=== PATIENT | female | born 1990 | race Caucasian/White ===

== ENCOUNTER 2018-12-08 20:31 | Observation (INO) ==
[2018-12-08 20:58] LABS: Bilirubin,Urine Small (Negative); Blood,Urine Negative (Negative); Clarity,Urine Clear (Clear); Color,Urine Yellow (Yellow); Glucose,Urine (UA) Normal (Normal); Ketones,Urine Negative (Negative); Leukocyte Esterase,Urine Negative (Negative); Nitrite,Urine Negative (Negative); Protein,Urine Negative (Neg-Trace); Specific Gravity,Urine 1.023 (1.010-1.025)
[2018-12-08 21:06] LABS: Amphetamine Screen,Urine Negative ng/mL (Cutoff=1000); Barbiturate Screen,Urine Negative ng/mL (Cutoff=200); Benzodiazepines Screen,Urine Negative ng/mL (Cutoff=200); Cannabinoid Screen,Urine Negative ng/mL (Cutoff = 50); Cocaine Screen,Urine Negative ng/mL (Cutoff= 300); Opiate Screen,Urine Negative ng/mL (Cutoff=300); Phencyclidine Screen,Urine Negative ng/mL (Cutoff=25)
[2018-12-08] MEDS ORDERED: Acetaminophen 325 MG TABLET PO ONE (22:02)
[2018-12-08] MEDS ORDERED: Acetaminophen/Butalbital/CaffeineTABLET PO PRN (23:11)
== END 2018-12-08 23:20 | disposition home or self-care (01) ==
LOC: 1NENULAB
PROVIDERS: ADMIT Registered Nurse; ATTEND Registered Nurse

== ENCOUNTER 2018-12-09 16:47 | Observation (INO) ==
[2018-12-09] MEDS ORDERED: Acetaminophen/Butalbital/CaffeineTABLET PO PRN (17:12)
[2018-12-09] MEDS ORDERED: Terconazole Vag CRM 20 GM TUBE VG SCH (17:36)
[2018-12-09 19:02] LABS: Bilirubin,Urine Negative (Negative); Blood,Urine Negative (Negative); Clarity,Urine Clear (Clear); Color,Urine Yellow (Yellow); Glucose,Urine (UA) Normal (Normal); Ketones,Urine 15 mg/dL (Negative); Leukocyte Esterase,Urine Negative (Negative); Nitrite,Urine Negative (Negative); PH,Urine 6.5 pH Units (5.0-8.0); Protein,Urine Negative (Neg-Trace); Specific Gravity,Urine 1.022 (1.010-1.025)
[2018-12-09] MEDS ORDERED: Acetaminophen 325 MG TABLET PO ONE (19:06)
[2018-12-09] MEDS ORDERED: Magnesium Oxide 400 MG TABLET PO ONE (19:07)
[2018-12-09 19:12] LABS: Amphetamine Screen,Urine Negative ng/mL (Cutoff=1000); Barbiturate Screen,Urine Positive ng/mL (Cutoff=200); Benzodiazepines Screen,Urine Negative ng/mL (Cutoff=200); Cannabinoid Screen,Urine Negative ng/mL (Cutoff = 50); Cocaine Screen,Urine Negative ng/mL (Cutoff= 300); Opiate Screen,Urine Negative ng/mL (Cutoff=300); Phencyclidine Screen,Urine Negative ng/mL (Cutoff=25)
[2018-12-09 20:55] LABS: Basophils % 0.3 %; Eosinophils # 0.1 K/mcL (0.0-0.6); Eosinophils % 1.1 %; Hematocrit 34.2 % (35.3-44.9); Hemoglobin 12.4 g/dL (11.5-15.4); Immature Granulocytes % 0.5 % (0-4); Lymphocytes # 2.7 K/mcL (0.6-4.6); Lymphocytes % 20.8 %; Mean Corpuscular HGB Conc 36.3 g/dL (31.6-35.5); Mean Corpuscular Hemoglobin 34.6 pg (28.0-33.3); Mean Corpuscular Volume 95.5 fL (83.0-100.0); Mean Platelet Volume 10.1 fL (9.4-12.4); Monocytes # 0.7 K/mcL (0.0-1.3); Monocytes % 5.7 %; Neutrophils # 9.2 K/mcL (1.6-8.9); Platelet Count 172 K/mcL (140-400); Red Blood Count 3.58 M/mcL (3.82-4.97); Red Cell Distribution Width 12.5 % (11.5-14.5); Segmented Neutrophils % 71.6 %; White Blood Count 12.9 K/mcL (4.3-11.1)
[2018-12-09 21:02] LABS: Protein/Creatinine Ratio,Urine 0.14 mg/mg (0.00-0.20)
[2018-12-09 21:14] LABS: Alanine Aminotransferase 9 Units/L (7-52); Aspartate Amino Transferase 13 Units/L (13-39); BUN/Creatinine Ratio 18 (6-26); Blood Urea Nitrogen 9 mg/dL (6-20); Lactate Dehydrogenase 123 Units/L (140-271); Uric Acid 3.2 mg/dL (2.3-7.6); eGFR For African Americans > 60 (> 60); eGFR For Non-African Americans > 60 (> 60)
== END 2018-12-09 20:39 | disposition home or self-care (01) ==
LOC: 1NENULAB
PROVIDERS: ADMIT Advanced Practice Midwife; ATTEND Advanced Practice Midwife

== ENCOUNTER 2018-12-15 15:18 | Observation (INO) ==
[2018-12-15 15:42] VITALS: BP 107/54
[2018-12-15] MEDS ORDERED: Betamethasone Acet/SodPhos 30 MG/5 ML VIAL IM SCH (15:45)
[2018-12-15 15:57] LABS: Bilirubin,Urine Negative (Negative); Blood,Urine Small (Negative); Clarity,Urine Cloudy (Clear); Color,Urine Yellow (Yellow); Glucose,Urine (UA) Normal (Normal); Ketones,Urine Trace mg/dL (Negative); Leukocyte Esterase,Urine Negative (Negative); Nitrite,Urine Negative (Negative); Protein,Urine Negative (Neg-Trace); Specific Gravity,Urine 1.017 (1.010-1.025)
[2018-12-15 16:02] LABS: Bacteria,Urine None Seen per hpf (None-Few); Hyaline Casts,Urine None Seen per lpf (None-Few); RBC,Urine 0-3 per hpf (0-3); Squamous Epithelial Cell,Urine Many per lpf (None-Few); WBC,Urine 0-3 per hpf (0-3)
[2018-12-15 16:42] LABS: Amphetamine Screen,Urine Negative ng/mL (Cutoff=1000); Barbiturate Screen,Urine Positive ng/mL (Cutoff=200)
[2018-12-15 16:43] LABS: Benzodiazepines Screen,Urine Negative ng/mL (Cutoff=300); Cannabinoid Screen,Urine Positive ng/mL (Cutoff = 50); Cocaine Screen,Urine Negative ng/mL (Cutoff= 300); Opiate Screen,Urine Negative ng/mL (Cutoff=300); Phencyclidine Screen,Urine Negative ng/mL (Cutoff=25)
[2018-12-15] MEDS ORDERED: Ampicillin 2 GM in 0.9 % Sodium Chloride Mini Bag 100 ML IVPB ONE (17:21)
[2018-12-15] MEDS ORDERED: Ringers Solution, Lactated 1,000 ML IVC ONE (17:28)
[2018-12-15 17:51] LABS: Basophils % 0.2 %; Eosinophils # 0.1 K/mcL (0.0-0.6); Eosinophils % 0.9 %; Hematocrit 34.7 % (35.3-44.9); Hemoglobin 12.2 g/dL (11.5-15.4); Immature Granulocytes % 0.6 % (0-4); Lymphocytes # 1.6 K/mcL (0.6-4.6); Lymphocytes % 12.4 %; Mean Corpuscular HGB Conc 35.2 g/dL (31.6-35.5); Mean Corpuscular Hemoglobin 33.8 pg (28.0-33.3); Mean Corpuscular Volume 96.1 fL (83.0-100.0); Mean Platelet Volume 10.1 fL (9.4-12.4); Monocytes # 0.5 K/mcL (0.0-1.3); Monocytes % 3.8 %; Neutrophils # 10.4 K/mcL (1.6-8.9); Platelet Count 168 K/mcL (140-400); Red Blood Count 3.61 M/mcL (3.82-4.97); Red Cell Distribution Width 12.7 % (11.5-14.5); Segmented Neutrophils % 82.1 %; White Blood Count 12.7 K/mcL (4.3-11.1)
[2018-12-15] MEDS ORDERED: NIFEdipine 10 MG CAPSULE PO SCH (18:00)
== END 2018-12-15 19:10 | disposition other institution (70) ==
LOC: 1NENULAB
PROVIDERS: ADMIT Advanced Practice Midwife; ATTEND Advanced Practice Midwife

== ENCOUNTER → 2018-12-22 16:30 | Observation (INO) ==
--- NOTE | 2018-12-22 17:09 | OB/GYN Progress Note ---
Date of Encounter: 12/22/18 Time of Encounter: 17:07 - Assessment and Plan (1) 32 weeks gestation of Status: Acute (2) uterine contractions Status: Acute Cervix remains the same from discharge from [facility]. No change on serial cervical exams. Patient states she has stopped feeling contractions while in triage, and requests discharge home. Patient discharged home with labor when to return to triage precautions. Patient verbalizes understanding. Subjective - Subjective Interval history: 32+0 weeks gestation presents to triage with complaints of contractions. Was seen last week with contractions, transfer to [facility]. Discharged home 2-3 cm[address] Was seen [address] Dr[address] Cortes in office today. Patient reported having contractions off and on since last night. Here for evaluation. Reports good movement, denies vaginal bleeding or leaking of fluid. Antepartum ROS: movement normal, contractions, no loss of fluid, no vaginal bleeding Objective - Vital Signs Vital Signs: Intake and Output 12/22/18 12/22/18 12/22/18 07:59 15:59 23:59 Other: Weight 55.2 kg Patient Weight 12/22/18 23:59 Weight 55.2 kg - Exam FHR: auscultation normal
== END | disposition home or self-care (01) ==
LOC: 1NENULAB
PROVIDERS: ADMIT Advanced Practice Midwife; ATTEND Advanced Practice Midwife

== ENCOUNTER → 2019-01-05 01:05 | Observation (INO) ==
[2019-01-04 22:54] LABS: Bilirubin,Urine Small (Negative); Blood,Urine Negative (Negative); Clarity,Urine Clear (Clear); Color,Urine Dark Yellow (Yellow); Glucose,Urine (UA) Normal (Normal); Ketones,Urine Negative (Negative); Leukocyte Esterase,Urine Negative (Negative); Nitrite,Urine Negative (Negative); Protein,Urine Negative (Neg-Trace); Specific Gravity,Urine 1.024 (1.010-1.025); Urobilinogen,Urine Normal (Normal)
[2019-01-04 23:05] LABS: Amphetamine Screen,Urine Negative ng/mL (Cutoff=1000); Barbiturate Screen,Urine Negative ng/mL (Cutoff=200); Benzodiazepines Screen,Urine Negative ng/mL (Cutoff=200); Cannabinoid Screen,Urine Positive ng/mL (Cutoff = 50); Cocaine Screen,Urine Negative ng/mL (Cutoff= 300); Opiate Screen,Urine Negative ng/mL (Cutoff=300); Phencyclidine Screen,Urine Negative ng/mL (Cutoff=25)
--- NOTE | 2019-01-04 23:27 | Discharge Summary ---
Date of Encounter: 01/05/19 Time of Encounter: 23:26 - Discharge Diagnosis (1) 34 weeks gestation of Priority: Primary Status: Acute Comments: Admit to observation for questionable SROM (2) NST (non-stress test) reactive Priority: Secondary Status: Acute Comments: Category 1 Tracing. FHR 135 bpm, moderate variability, +15x15 accels, no decels. (3) uterine contractions Priority: Secondary Status: Acute Comments: Rare uterine contractions. SVE unchanged from previous exam - Given steroid course at 30 weeks gestation when she was transferred to [facility] for PTL (4) Marijuana use Priority: Secondary Status: Acute Comments: Multiple positive THC screens throughout this . She has had a consult with psychotherapist social worker in the office - Discharge Medications Prescriptions: No Action Vortioxetine Hydrobromide [Trintellix] 10 mg PO DAILY ARIPiprazole [Abilify] 10 mg PO DAILY Caplet Home Medications: ARIPiprazole [Abilify] 10 mg PO DAILY 11/04/18 [History] Vortioxetine Hydrobromide [Trintellix] 10 mg PO DAILY 11/04/18 [History] Caplet 01/04/19 [History] Allergies/Adverse Reactions: Allergy/AdvReac Type Severity Reaction Status Date / Time azithromycin Allergy Abdominal Verified 01/04/19 22:39 Pain promethazine [From Phenergan] Allergy Hallucinati Verified 01/04/19 22:39 ng metoclopramide [From Reglan] AdvReac See Verified 01/04/19 22:39 Comments prochlorperazine AdvReac Confusion Verified 01/04/19 22:39 [From Compazine] Data Procedures and tests throughout hospitalization: Laboratory Tests 01/04/19 01/04/19 22:30 22:30 Urine Color Dark Yellow Urine Clarity Clear Urine pH 6.0 Ur Specific [place] 1.024 Urine Protein Negative Urine Glucose (UA) Normal Urine Ketones Negative Urine Blood Negative Urine Nitrite Negative Urine Bilirubin Small H Urine Urobilinogen Normal Ur Leukocyte Esterase Negative Ur Culture Indicated? NO Urine Opiates Screen Negative Ur Buprenorphine Scrn Negative Ur Barbiturates Screen Negative Ur Phencyclidine Scrn Negative Ur Amphetamines Screen Negative U Benzodiazepines Scrn Negative Urine Cocaine Screen Negative U Marijuana (THC) Screen Positive H Ur Drug Screen Interp See Below Labs on day of discharge: Labs from last 24 hours 01/04/19 01/04/19 22:30 22:30 Urine Color Dark Yellow Urine Clarity Clear Urine pH 6.0 Ur Specific [place] 1.024 Urine Protein Negative Urine Glucose (UA) Normal Urine Ketones Negative Urine Blood Negative Urine Nitrite Negative Urine Bilirubin Small H Urine Urobilinogen Normal Ur Leukocyte Esterase Negative Ur Culture Indicated? NO Urine Opiates Screen Negative Ur Buprenorphine Scrn Negative Ur Barbiturates Screen Negative Ur Phencyclidine Scrn Negative Ur Amphetamines Screen Negative U Benzodiazepines Scrn Negative Urine Cocaine Screen Negative U Marijuana (THC) Screen Positive H Ur Drug Screen Interp See Below Date of admission: 01/04/19 22:14 Discharging clinician: Rain Vance Anticipated date of discharge: 01/04/19 - Patient Status Disposition: Home, Self-Care Condition: Good Functional capacity at discharge: independent ambulation Overall status at discharge: patient is progressing back to baseline - Discharge Instructions Follow Up With: Bernardo Ni DO [Partnered Physician] - - Diet and Activity Activity: resume usual activities as tolerated Diet: regular diet Hospital Course FINISHING TECHNICIAN Hospital course: Patient arrived for complaint of possible SROM. States she was going to the bathroom frequently and felt like she couldn't make it there before she started having leakage. She reports positive movement and denies vaginal bleeding. She was transferred to [facility] at 30 weeks gestation for labor at which time she was 2 cm. Last check by Dr. Cortes was 3cm on 12/22/18. SVE prior to discharge today is 3/70/-2. Vaginosis panel was collected and returned negative. SSE completed and no fluid visualized, normal white vaginal discharge noted. Time Attestation: Total time spent providing and/or coordinating discharge services: Time Spent: Less than 30 minutes Exam - Constitutional General appearance IM: A&O X 3, no acute distress - Respiratory Respiratory exam: Present: CTAB. Absent: respiratory distress - Cardiovascular Cardiovascular exam IM: Present: RRR, +S1, +S2. Absent: irregular rhythm - GI/Abdominal GI/Abdominal exam IM: normal bowel sounds, soft - Rectal Rectal exam: deferred - External exam: normal external exam - Extremities Exam Extremities exam IM: Present: full ROM, normal capillary refill, normal inspection. Absent: calf tenderness - Neurological Exam Neurological exam: alert, normal gait, oriented X3 - VTE Reasons for not Prescribing Prophylaxis: Treatment not Indicated - Low risk for VTE
[2019-01-05 00:17] LABS: Candida DNA Not Detected (Not Detect); Gardnerella DNA Not Detected (Not Detect); Trichomonas DNA Not Detected (Not Detect)
== END | disposition home or self-care (01) ==
LOC: 1NENULAB
PROVIDERS: ADMIT Registered Nurse; ATTEND Registered Nurse

== ENCOUNTER 2019-01-10 19:44 | Inpatient (IN) ==
[2019-01-10] MEDS ORDERED: Acetaminophen/Butalbital/CaffeineTABLET PO PRN (19:58)
[2019-01-10] MEDS ORDERED: Ringers Solution, Lactated 1,000 ML IVC SCH (20:00)
[2019-01-10 20:34] LABS: Bilirubin,Urine Negative (Negative); Blood,Urine Negative (Negative); Clarity,Urine Clear (Clear); Color,Urine Yellow (Yellow); Glucose,Urine (UA) Normal (Normal); Ketones,Urine Trace mg/dL (Negative); Leukocyte Esterase,Urine Negative (Negative); Nitrite,Urine Negative (Negative); PH,Urine 6.5 pH Units (5.0-8.0); Protein,Urine Trace mg/dL (Neg-Trace)
[2019-01-10 20:39] LABS: Amphetamine Screen,Urine Negative ng/mL (Cutoff=1000); Barbiturate Screen,Urine Negative ng/mL (Cutoff=200); Benzodiazepines Screen,Urine Negative ng/mL (Cutoff=200); Cannabinoid Screen,Urine Negative ng/mL (Cutoff = 50); Cocaine Screen,Urine Negative ng/mL (Cutoff= 300); Opiate Screen,Urine Negative ng/mL (Cutoff=300); Phencyclidine Screen,Urine Negative ng/mL (Cutoff=25)
--- NOTE | 2019-01-10 20:39 | Discharge Summary ---
Date of Encounter: 01/10/19 - Discharge Diagnosis (1) 34 weeks gestation of Priority: Primary Status: Acute Comments: Follow up with Dr. Cortes as scheduled PTL parameters discussed Discharge home (2) Headache Priority: Secondary Status: Acute Comments: Fioricet given x 1 Qualifiers: Headache type: unspecified Headache chronicity pattern: acute headache Intractability: intractable Qualified Code(s): R51 - Headache (3) Vaginal discharge during in third trimester Priority: Secondary Status: Acute Comments: Vaginosis panel - UA - - Discharge Medications Prescriptions: No Action Vortioxetine Hydrobromide [Trintellix] 10 mg PO DAILY ARIPiprazole [Abilify] 10 mg PO DAILY Caplet PO DAILY Home Medications: ARIPiprazole [Abilify] 10 mg PO DAILY 11/04/18 [History] Vortioxetine Hydrobromide [Trintellix] 10 mg PO DAILY 11/04/18 [History] Caplet PO DAILY 01/04/19 [History] Allergies/Adverse Reactions: Allergy/AdvReac Type Severity Reaction Status Date / Time azithromycin Allergy Abdominal Verified 01/10/19 20:14 Pain promethazine [From Phenergan] Allergy Hallucinati Verified 01/10/19 20:14 ng metoclopramide [From Reglan] AdvReac See Verified 01/10/19 20:14 Comments prochlorperazine AdvReac Confusion Verified 01/10/19 20:14 [From Compazine] Data Procedures and tests throughout hospitalization: Laboratory Tests 01/10/19 20:09 Ur Drug Screen Interp See Below Labs on day of discharge: Labs from last 24 hours 01/10/19 20:09 Ur Drug Screen Interp See Below Date of admission: 01/10/19 19:44 - Patient Status Disposition: Home, Self-Care Condition: Good Functional capacity at discharge: independent ambulation Overall status at discharge: patient is progressing back to baseline - Discharge Instructions Follow Up With: Nicolas Cortes MD [Partnered Physician] - - Diet and Activity Activity: increase activity as tolerated Diet: regular diet Hospital Course PHOTOGRAPHER Reason for admission: other Discharge diagnosis: other Time Attestation: Total time spent providing and/or coordinating discharge services: Time Spent: Less than 30 minutes Exam - Constitutional General appearance IM: A&O X 3, pleasant, answers questions appropriately - Respiratory Respiratory exam: Present: CTAB - Cardiovascular Cardiovascular exam IM: Present: RRR, +S1, +S2 - GI/Abdominal GI/Abdominal exam IM: normal bowel sounds, no peritoneal signs - Rectal Rectal exam: deferred - Uterine Tone: Firm - Extremities Exam Extremities exam IM: Present: full ROM, normal inspection, radial pulses palpable and symmetrical - Neurological Exam Neurological exam: alert, CN II-XII intact, normal gait, oriented X3, reflexes normal, no focal deficits, strengths equal and symetr throughout - VTE Reasons for not Prescribing Prophylaxis: Treatment not Indicated - Low risk for VTE
[2019-01-10 21:15] LABS: Candida DNA Not Detected (Not Detect); Gardnerella DNA Not Detected (Not Detect); Trichomonas DNA Not Detected (Not Detect)
[2019-01-10] MEDS ORDERED: Betamethasone Acet/SodPhos 30 MG/5 ML VIAL IM SCH (21:15)
--- NOTE | 2019-01-10 21:47 | OB/GYN History & Physical ---
Date of Encounter: 01/10/19 Time of Encounter: 21:40 Assessment and Plan (1) 34 weeks gestation of Current visit: No Status: Acute Placement to obs for monitoring s/t prolonged deceleration CEFM IV fluids BMZ x 1 (2) Headache Current visit: No Status: Acute Fioricet given - no relief [id number] with benadryl given Qualifiers: Headache type: unspecified Headache chronicity pattern: acute headache Intractability: intractable Qualified Code(s): R51 - Headache (3) Vaginal discharge during in third trimester Current visit: Yes Status: Acute (4) heart deceleration Current visit: Yes Status: Acute Admit to observation overnight for monitoring r/t 2 minute deceleration CEFM History of Present Illness Chief complaint: ctx/hodgson HPI: Ms. De Santiago is a 28 year old female at 34 weeks 5 days gestation with an estimated date of 02/16/19 dated by initial ultrasound. She presents with complaint of headache for the last few days worsening today as well as contractions starting earlier today. She endorses good fm and denies lof, vb. Her has been complicated by narcolepsy, adult situational stress disorder, labor, migraines. She has been seen by MFM and recs to evaluate for vonWillebrand. Past Med Surg Social Fam HX - Past Medical History Medical history: asthma, other Additional medical history: alpha-1 antitrypsin deficiency Psychiatric history: anxiety, bipolar, depression - Past Surgical History Surgical History: appendectomy, other Additional surgical history: T&A - Social History Smoking Status: Current every day smoker Smokeless Tobacco Status: No Alcohol use: none Drug use: marijuana - Family History Mother Living Status: Still Living Hx Family Cardiac Disorders: Yes (HTN) Hx Family Respiratory Disorders: No Hx Family Cancer: No Hx Family GI Disorders: No Hx Family Endocrine Disorder: No Hx Family Neuromuscular Disorders: No Hx Family Neurologic Disorders: No Hx Family HEENT Disorders: No Hx Family Autoimmune Disorders: No Obstetrical History - Pregnancies : 4 Para: 2 Term: 1 : 1 Ab's: 1 Livin Medications and Allergies ARIPiprazole [Abilify] 10 mg PO DAILY 11/04/18 [History] Vortioxetine Hydrobromide [Trintellix] 10 mg PO DAILY 11/04/18 [History] Caplet PO DAILY 01/04/19 [History] Allergy/AdvReac Type Severity Reaction Status Date / Time azithromycin Allergy Abdominal Verified 01/10/19 20:14 Pain promethazine [From Phenergan] Allergy Hallucinati Verified 01/10/19 20:14 ng metoclopramide [From Reglan] AdvReac See Verified 01/10/19 20:14 Comments prochlorperazine AdvReac Confusion Verified 01/10/19 20:14 [From Compazine] Review of System OB All systems PM: reviewed and no additional remarkable complaints except as stated Exam - Constitutional Constitutional: well developed, well nourished, average body habitus, mild distress - HEENT HEENT: Normocephaly, Mucus Membranes Moist - Neck Neck exam: full ROM - Lungs Respiratory exam: CTAB - Cardiovascular Cardiovascular exam: RRR, +S1, +S2 - Breasts Breast: bilateral: normal - Abdomen Abdomen: Present: bowel sounds normal, gravid, non tender - Extremities Extremities exam: normal capillary refill, normal inspection, radial pulses palpable and symmetrical - Vulva Vulva: bilateral: normal - Vagina Vagina: Present: normal moisture - Cervix Dilation: 3 Effacement: 80 Station: -2 - Uterus Uterus exam: Present: normal size - Adnexa Adnexa: bilateral: normal - Anus/Rectum Anus/Rectum: Present: normal perianal skin Results Abnormal lab results Urine Ketones Trace mg/dL (Negative) H 01/10/19 20:09 Urine Urobilinogen 4.0 mg/dL (Normal) H 01/10/19 20:09 All other labs normal. - VTE Reasons for not Prescribing Prophylaxis: Treatment not Indicated - Low risk for VTE
[2019-01-10] MEDS ORDERED: D5% in Lactated Ringers 1,000 ML IVC SCH (22:45)
[2019-01-11 00:56] LABS: Hematocrit 34.5 % (35.3-44.9); Hemoglobin 11.9 g/dL (11.5-15.4); Immature Granulocytes % 0.5 % (0-4); Lymphocytes % 22.4 %; Mean Corpuscular HGB Conc 34.5 g/dL (31.6-35.5); Mean Corpuscular Hemoglobin 33.6 pg (28.0-33.3); Mean Corpuscular Volume 97.5 fL (83.0-100.0); Mean Platelet Volume 11.3 fL (9.4-12.4); Platelet Count 166 K/mcL (140-400); Red Blood Count 3.54 M/mcL (3.82-4.97); Red Cell Distribution Width 12.9 % (11.5-14.5); Segmented Neutrophils % 69.2 %; White Blood Count 11.2 K/mcL (4.3-11.1)
[2019-01-11 00:57] LABS: Basophils % 0.2 %; Eosinophils # 0.2 K/mcL (0.0-0.6); Eosinophils % 1.7 %; Lymphocytes # 2.5 K/mcL (0.6-4.6); Monocytes # 0.7 K/mcL (0.0-1.3); Neutrophils # 7.8 K/mcL (1.6-8.9)
[2019-01-11] MEDS ORDERED: *HR* Nalbuphine 10 MG/ML AMPUL IV ONE (04:02)
--- NOTE | 2019-01-11 05:53 | Event Note ---
Date of Encounter: 01/11/19 Time of Encounter: 05:49 RN called CNM to bedside for prolonged deceleration lasting 6 minutes in the presence of a 6 minute contraction. I entered the room to find patient in hands and knees and decel resolved. Emil was 70. Current baseline is 120 with moderate variability. Advised patient to stay in hands and knees for 5-10 more minutes to allow for recovery. No further orders at this time.
[2019-01-11] MEDS ORDERED: NIFEdipine 10 MG CAPSULE PO ONE (06:16)
[2019-01-11] MEDS ORDERED: Terbutaline 1 MG/ML VIAL SQ ONE ×2 (06:39→06:44)
--- NOTE | 2019-01-11 06:50 | Event Note ---
Date of Encounter: 01/11/19 Time of Encounter: 06:48 Offered patient nifedipine to stop contractions and she refused stating the last time she had it her BP dropped very low. Offered terbutaline and she accepted.
[2019-01-11] MEDS ORDERED: SUMAtriptan succinate 50 MG TABLET PO ONE (10:18)
[2019-01-11] MEDS ORDERED: Acetaminophen IV 1,000 MG/100 ML INFUS..BTL IVPB ONE (14:09)
--- NOTE | 2019-01-11 14:20 | Event Note ---
Date of Encounter: 01/11/19 Time of Encounter: 14:06 In patient room for prolonged deceleration. This is the second prolonged decel in the last couple of hours. Dr. Astorga was called to room with the first decel and recovered after several minutes. This time, the heart rate did not recover with position change and oxygen. Dr. Astorga was called and unavailable due to being in surgery. Dr. Sheppard was then called and presence requested STAT due to bradycardia. She will be on her way from the office. Dr. Cooley came to bedside and STAT called.
--- NOTE | 2019-01-11 14:22 | OB/GYN Procedure Note ---
Section - Date of procedure: 01/11/19 Preop diagnosis: other (Persistent bradycardia) Post-op diagnosis: same Procedure: primary low transverse Surgeon: Jacob Bautista Blood Loss: 500 Was there an executive assistant to general counsel present: Yes Pond Sawyer: Mike De Luna Anesthesiologist: aNncy Torres [employer] Power Shovel Operator: Riky Antoine Anesthesia Type: General section complications: none Disposition: PACU Specimens: Placenta - (s) Infant A Delivery Date: 01/11/19 Delivery Time: 13:56 Presentation: vertex Position: OA Route of delivery: other () Gender: Male Placenta: partial extraction Cord: 3 umbilical vessels - Narrative Narrative: I was in the hospital assisting in the OR when a phone call came from labor and delivery. Nursing needed immediate assistance for with persistent bradycardia. Nursing and snuff packing machine operator tried numerous positions to try to help with the heart rate. Nothing would help. Heart rate remained between 50s and 70s. At this time I came down. Patient was remote from delivery. She is 34 weeks and had had steroids on board. Emergency section was called at this time. Patient was taken immediately to the OR. anesthesia was notified. In the OR nursing immediately got patient ready. She is placed on the table. Catheter was placed. Her abdomen was prepped she was then draped. Patient was given immediate general anesthesia. heart rate was in the 50s at this point. Once anesthesia said to begin the incision this was done. A Pfannenstiel incision was made through the skin. Was carried sharply through the subtenons tissue to the fascial layers reached. This was then nicked in the midline and the incision was bluntly extended. The rectus abdominis musculature is and midline and the peritoneum was then bluntly entered and extended. A bladder blade was placed at the inferior margin incision. The bladder flap was developed. A low transverse incision was then made lower uterine segment. Fluid was noted be clear. The was then delivered. Infant was within 2 minutes of general anesthesia. cried immediately upon delivery. Cord was cut to cut. The was passed to NICU team in attendance. Cord gases were obtained the placenta was delivered via uterine ma ssage and then the uterine lavage was performed. The incision was then closed the Vicryl suture running locking fashion. One [id number] was placed for final hemostasis. The uterus was replaced the pelvic cavity. The pelvic cavity was rinsed thoroughly with sterile water 2. Seeing no bleeding the procedure was terminated. The suprafascial region was rinsed thoroughly with sterile water 2. All bleeders cauterized. The skin was closed saadia. An x-ray was ordered as no instrument count was able to be performed prior to the case. Estimated blood loss 500 mL
[2019-01-11] MEDS ORDERED: EPHEDrine 50 MG/ML VIAL ONE (14:24)
[2019-01-11] MEDS ORDERED: Dexamethasone 4 MG/ML VIAL ONE (14:24)
[2019-01-11] MEDS ORDERED: *HR* Oxytocin 10 UNIT/ML VIAL IM ONE ×3 (14:24)
[2019-01-11] MEDS ORDERED: *HR* Propofol 200 MG/20 ML VIAL IVP ONE (14:24)
[2019-01-11] MEDS ORDERED: Ondansetron 4 MG/2 ML VIAL ONE (14:24)
[2019-01-11] MEDS ORDERED: *HR* HYDROMORPHONE 2 MG/ML VIAL ONE ×3 (14:24→14:38)
[2019-01-11] MEDS ORDERED: *HR* Succinylcholine 200 MG/10 ML VIAL IVP ONE (14:24)
[2019-01-11] MEDS ORDERED: Ketorolac 30 MG/ML VIAL ONE (14:31)
--- NOTE | 2019-01-11 14:56 | Anesthesia Evaluation PreOp ---
Date of Encounter: 01/11/19 Time of Encounter: 13:48 - Past History Planned Operation: Stat Cardiac History: Denies any Significant Hx Pulmonary History: Smoker [employer] History: Denies Any Significant HX Other Medical History: Other (anxiety, depression, bipolar d/o) Anesthesia History: No Prior Anesthetic Complications (denies personal and family h/o GA complications) : Yes Alcohol Use: none Drug use: marijuana Medications and Allergies ARIPiprazole [Abilify] 10 mg PO DAILY 11/04/18 [History] Vortioxetine Hydrobromide [Trintellix] 10 mg PO DAILY 11/04/18 [History] Caplet PO DAILY 01/04/19 [History] Allergy/AdvReac Type Severity Reaction Status Date / Time azithromycin Allergy Abdominal Verified 01/10/19 20:14 Pain promethazine [From Phenergan] Allergy Hallucinati Verified 01/10/19 20:14 ng metoclopramide [From Reglan] AdvReac See Verified 01/10/19 20:14 Comments prochlorperazine AdvReac Confusion Verified 01/10/19 20:14 [From Compazine] - Meds/Allergy Pre-op Review Medications Reviewed: Yes Allergies Reviewed: Yes Beta Blockers on Current Med List: No Anesthesia Results - Labs 01/11/19 00:45 Anesthesia Exam 123/68, HR 77 O2 Sat Height 1.57 m Weight 55.8 kg NPO (# of Hours): solids > 8hrs Pain Scale Used: Unable to assess - HEENT Pupil (Motor): Pupils equal Mallampati: II Teeth: Normal Oral Opening: Greater than 3 - [employer] LOC: Oriented [employer] Motor: Normal RUE, Normal LUE, Normal RLE, Normal LLE, Normal Face [employer] Sensory: Normal: RUE, LUE, RLE, LLE, Face - Cardiac Rhythm: Regular Murmur: None - Pulmonary Breath Sounds: bilateral Clear Respiratory Effort: Symmetrical Anesthesia Assess/Plan ASA Score: 2, E Level of consciousness: Cooperative, Oriented, Anxious Anesthetic Plan: General Autologous Blood: No Monitoring Plan: Standard Monitors Recovery Plan: PACU
--- NOTE | 2019-01-11 15:00 | Anesthesia Evaluation Post Op ---
Date of Encounter: 01/11/19 Time of Encounter: 14:59 - Vital Signs Vital Signs: 113/76, HR 64, SpO2 98%, T98.3F, RR16 - Lungs Lungs: Clear Ascult./Percussion - Airway Airway: Non-obstructed - Cardiovascular Regular Rate - Mental Status Mental Status: Alert & Oriented, Answers Appropriately - Pain Pain Scale: 3 Pain Scale used: Nuris (Faces) - Nausea Vomiting Nausea Vomiting: Not Present - Hydration Hydration: NPO, Ball catheter - Discharge PostOp Status: Transfer Patient to floor
[2019-01-11] MEDS ORDERED: Oxytocin 20 units/ LR 1000 mL 20 UNIT/1,000 ML BAG IVC ONE (16:07)
[2019-01-11] MEDS ORDERED: Metoclopramide 10 MG/2 ML VIAL IVP PRN (17:03)
[2019-01-11] MEDS ORDERED: Naloxone 0.4 MG/ML INJ IVP PRN (17:03)
[2019-01-11] MEDS ORDERED: Simethicone 80 MG TAB.CHEW PO PRN (17:03)
[2019-01-11] MEDS ORDERED: Oxytocin 20 units/ LR 1000 mL 20 UNIT/1,000 ML BAG IVC SCH ×2 (17:03)
[2019-01-11] MEDS ORDERED: Sennosides 8.6 MG TABLET PO PRN (17:03)
[2019-01-11] MEDS ORDERED: Measles/Mumps/Rubella Vacc 0.5 ML VIAL SQ ONE (17:03)
[2019-01-11] MEDS ORDERED: Ondansetron 4 MG/2 ML VIAL IVP PRN (17:03)
[2019-01-11] MEDS: Ibuprofen 600 MG TABLET PO PRN (18:11)
[2019-01-11] MEDS: *HR* OxyCODONE/APAP 5/325 TABLET PO PRN ×2 (18:11→22:14)
[2019-01-12] MEDS: Ibuprofen 600 MG TABLET PO PRN ×4 (00:14→18:23)
[2019-01-12] MEDS: *HR* OxyCODONE/APAP 5/325 TABLET PO PRN ×5 (02:01→20:33)
[2019-01-12] MEDS ORDERED: Lanolin 7 G OINT...G. TP PRN (04:42)
[2019-01-12 05:50] LABS: Basophils % 0.1 %; Eosinophils % 0.1 %; Hematocrit 28.2 % (35.3-44.9); Immature Granulocytes % 0.7 % (0-4); Lymphocytes # 1.9 K/mcL (0.6-4.6); Mean Corpuscular Hemoglobin 33.4 pg (28.0-33.3); Mean Corpuscular Volume 98.3 fL (83.0-100.0); Monocytes % 6.1 %; Neutrophils # 12.9 K/mcL (1.6-8.9); Platelet Count 154 K/mcL (140-400); Red Blood Count 2.87 M/mcL (3.82-4.97); Red Cell Distribution Width 12.9 % (11.5-14.5); White Blood Count 15.9 K/mcL (4.3-11.1)
[2019-01-12 06:21] LABS: Hemoglobin 9.6 g/dL (11.5-15.4)
[2019-01-12] MEDS ORDERED: (Vortioxetine Hydrobromide [Trintellix] 10 MG) PO SCH (09:00)
[2019-01-12] MEDS: ARIPiprazole 10 MG TABLET PO SCH (09:09)
[2019-01-12] MEDS: Prenatal Vit/FA 1 EACH TABLET PO SCH (09:09)
--- NOTE | 2019-01-12 13:47 | OB/GYN Progress Note ---
Date of Encounter: 01/12/19 Time of Encounter: 13:45 - Assessment and Plan (1) Status post primary low transverse section Current Visit: Yes Status: Acute Continue routine postop/ care Subjective - Subjective Principal diagnosis: Postop day 1 primary low transverse c/s Interval history: Patient is postop day 1 following a primary c/s for non-reassuring heart tones. Patient was under general anesthesia. She has saadia. She is ambulating. Infant was 34 weeks and is in SCN doing well on room air. Patient reports flatus, reports light lochia without blood clots. Patient reports: appetite normal, voiding normally, pain well controlled (with scheduled pain medications), ambulating normally : in NICU Objective - Vital Signs Latest vital signs: Vital Signs Temp Pulse Resp BP Pulse Ox 01/12/19 12:28 14 01/12/19 11:27 98.1 F 62 14 112/63 99 01/12/19 09:30 14 01/12/19 07:50 98 F 60 16 100/63 99 01/12/19 04:30 97.7 F 60 14 96/47 96 01/12/19 00:45 98.0 F 75 14 101/50 97 01/12/19 00:10 97.8 F 70 14 96/44 98 01/11/19 20:30 97.7 F 67 14 106/58 98 01/11/19 19:30 98 F 67 14 106/66 97 01/11/19 18:24 98.5 F 74 16 102/64 97 01/11/19 17:57 97.7 F 70 18 106/63 96 01/11/19 17:30 97.8 F 68 18 129/50 97 Intake and Output 01/11/19 01/12/19 01/12/19 23:59 07:59 15:59 Intake Total 100 / 100 720 / 960 240 / 960 Output Total 1010 / 1010 850 / 1450 600 / 1450 Balance -910 / -910 -130 / -490 -360 / -490 Intake: IV Fluids 100 / 100 Ancef 2,000 MG In 0.9 % Sodium 100 / 100 Chloride 100 ML @ 200 mls/hr IVPB Q8H [facility] Rx#:[id number] Oral 720 / 960 240 / 960 Output: Urine 200 / 800 600 / 800 Catheter 1010 / 1010 650 / 650 Other: Meal Breakfast Percent of Meal Consumed 100% Weight 56.88 kg Patient Weight 01/12/19 23:59 Weight 56.88 kg - Exam Lungs: bilateral: normal Extremities: Present: normal Abdomen: Present: normal appearance, soft Incision: Present: normal, dry, dressed Uterus: Present: normal, firm Fundal Height: 2 (U/2) - Labs Labs: Laboratory Results - last 24 hr 01/12/19 05:31 WBC 15.9 H RBC 2.87 L Hgb 9.6 L D Hct 28.2 L MCV 98.3 MCH 33.4 H MCHC 34.0 RDW 12.9 Plt Count 154 MPV 11.0 Immature Gran % 0.7 Seg Neutrophils % 81.0 Lymphocytes % 12.0 Monocytes % 6.1 Eosinophils % 0.1 Basophils % 0.1 Neutrophils # 12.9 H Lymphocytes # 1.9 Monocytes # 1.0 Eosinophils # 0.0 Basophils # 0.0
[2019-01-13] MEDS: Ibuprofen 600 MG TABLET PO PRN ×2 (02:05→08:51)
[2019-01-13] MEDS: *HR* OxyCODONE/APAP 5/325 TABLET PO PRN ×2 (06:59→11:39)
[2019-01-13 07:45] VITALS: BP 95/62
[2019-01-13] MEDS: Prenatal Vit/FA 1 EACH TABLET PO SCH (08:51)
[2019-01-13] MEDS: ARIPiprazole 10 MG TABLET PO SCH (08:59)
--- NOTE | 2019-01-13 10:40 | Discharge Summary ---
Date of Encounter: 01/13/19 Time of Encounter: 10:36 - Discharge Diagnosis (1) Status post primary low transverse section Priority: Primary Status: Acute Comments: S/P Delivery Day 2. VSS Pain is well controlled Lochia is light and without clots Tolerating regular diet, passing flatus Voiding without difficulty Breast feeding Discharge home today POC per consult with Dr Cooley - Discharge Medications Prescriptions: New Mupirocin [Bactroban Oint] 1 appl TP BID tube Breast Pump [BREAST PUMP] 1 each .ROUTE AD #1 each Docusate [Colace] 100 mg PO BID PRN #30 capsule PRN Reason: Constipation Ferrous Sulfate 325 mg PO BIDWM #180 tablet Simethicone [Gas-X] 80 mg PO TID PRN tab.chew PRN Reason: Dyspepsia Lanolin [Lansinoh] 1 appl TP Q4HR PRN oint...g. PRN Reason: Sore Nipples Ibuprofen [Motrin] 600 mg PO Q6HR PRN #30 tablet PRN Reason: Cramping OxyCODONE/APAP 5/325 [Percocet 5/325 MG] 1 each PO Q6H PRN 5 Days #20 tablet PRN Reason: Moderate pain 4-6 Continued Vortioxetine Hydrobromide [Trintellix] 10 mg PO DAILY ARIPiprazole [Abilify] 10 mg PO DAILY Caplet PO DAILY Home Medications: ARIPiprazole [Abilify] 10 mg PO DAILY 11/04/18 [History] Vortioxetine Hydrobromide [Trintellix] 10 mg PO DAILY 11/04/18 [History] Caplet PO DAILY 01/04/19 [History] Breast Pump [BREAST PUMP] 1 each .ROUTE AD #1 each 01/13/19 [Rx] Docusate [Colace] 100 mg PO BID PRN #30 capsule 01/13/19 [Rx] Ferrous Sulfate 325 mg PO BIDWM #180 tablet 01/13/19 [Rx] Ibuprofen [Motrin] 600 mg PO Q6HR PRN #30 tablet 01/13/19 [Rx] Lanolin [Lansinoh] 1 appl TP Q4HR PRN oint...g. 01/13/19 [Rx] Mupirocin [Bactroban Oint] 1 appl TP BID tube 01/13/19 [Rx] OxyCODONE/APAP 5/325 [Percocet 5/325 MG] 1 each PO Q6H PRN 5 Days #20 tablet 01/13/19 [Rx] Simethicone [Gas-X] 80 mg PO TID PRN tab.chew 01/13/19 [Rx] Allergies/Adverse Reactions: Allergy/AdvReac Type Severity Reaction Status Date / Time azithromycin Allergy Abdominal Verified 01/10/19 20:14 Pain promethazine [From Phenergan] Allergy Hallucinati Verified 01/10/19 20:14 ng metoclopramide [From Reglan] AdvReac See Verified 01/10/19 20:14 Comments prochlorperazine AdvReac Confusion Verified 01/10/19 20:14 [From Compazine] Data Procedures and tests throughout hospitalization: Laboratory Tests 01/10/19 01/10/19 01/10/19 20:09 20:09 20:09 WBC RBC Hgb Hct MCV MCH MCHC RDW Plt Count MPV Immature Gran % Seg Neutrophils % Lymphocytes % Monocytes % Eosinophils % Basophils % Neutrophils # Lymphocytes # Monocytes # Eosinophils # Basophils # Urine Color Yellow Urine Clarity Clear Urine pH 6.5 Ur Specific [place] 1.020 Urine Protein Trace Urine Glucose (UA) Normal Urine Ketones Trace H Urine Blood Negative Urine Nitrite Negative Urine Bilirubin Negative Urine Urobilinogen 4.0 H Ur Leukocyte Esterase Negative Ur Culture Indicated? NO Urine Opiates Screen Negative Ur Buprenorphine Scrn Negative Ur Barbiturates Screen Negative Ur Phencyclidine Scrn Negative Ur Amphetamines Screen Negative U Benzodiazepines Scrn Negative Urine Cocaine Screen Negative U Marijuana (THC) Screen Negative Ur Drug Screen Interp See Below Dulce species DNA Not Detected Gardnerella DNA Probe Not Detected Trichomonas DNA Probe Not Detected 01/11/19 01/12/19 00:45 05:31 WBC 11.2 H 15.9 H RBC 3.54 L 2.87 L Hgb 11.9 9.6 L D Hct 34.5 L 28.2 L MCV 97.5 98.3 MCH 33.6 H 33.4 H MCHC 34.5 34.0 RDW 12.9 12.9 Plt Count 166 154 MPV 11.3 11.0 Immature Gran % 0.5 0.7 Seg Neutrophils % 69.2 81.0 Lymphocytes % 22.4 12.0 Monocytes % 6.0 6.1 Eosinophils % 1.7 0.1 Basophils % 0.2 0.1 Neutrophils # 7.8 12.9 H Lymphocytes # 2.5 1.9 Monocytes # 0.7 1.0 Eosinophils # 0.2 0.0 Basophils # 0.0 0.0 Urine Color Urine Clarity Urine pH Ur Specific [place] Urine Protein Urine Glucose (UA) Urine Ketones Urine Blood Urine Nitrite Urine Bilirubin Urine Urobilinogen Ur Leukocyte Esterase Ur Culture Indicated? Urine Opiates Screen Ur Buprenorphine Scrn Ur Barbiturates Screen Ur Phencyclidine Scrn Ur Amphetamines Screen U Benzodiazepines Scrn Urine Cocaine Screen U Marijuana (THC) Screen Ur Drug Screen Interp Dulce species DNA Gardnerella DNA Probe Trichomonas DNA Probe - Impressions ITS Impressions KUB X-Ray 01/11/19 14:33 IMPRESSION: No evidence of surgical instrument within the operative field status post D/ / Reji Quintana MD / Reji Quintana MD Interpreting Provider: Reji Quintana MD Date of admission: 01/10/19 19:44 Primary care physician: PCP NONE Discharging clinician: Maris Carroll Anticipated date of discharge: 01/13/19 - Patient Status Disposition: Home, Self-Care Condition: Good Functional capacity at discharge: independent ambulation Overall status at discharge: patient is progressing back to baseline - Discharge Instructions Follow Up With: Nicolas Cortes MD [Partnered Physician] - Jacob Cooley MD [Partnered Physician] - - Diet and Activity Activity: increase activity as tolerated Diet: regular diet Hospital Course Reason for admission: observation Delivery: section Episiotomy: none Laceration: none Other procedures: none complications: none Discharge diagnosis: IUP at term delivered [place] baby: male Time Attestation: Total time spent providing and/or coordinating discharge services: Time Spent: Less than 30 minutes - VTE Reasons for not Prescribing Prophylaxis: Treatment not Indicated - Low risk for VTE Documentation of Mechanical Device: Intermittent pneumatic compression device Exam - Constitutional Vitals: Temp Pulse Resp BP Pulse Ox 97.9 F 59 16 95/62 100 01/13/19 07:44 01/13/19 07:44 01/13/19 07:44 01/13/19 07:44 01/12/19 20:30 General appearance IM: cooperative, A&O X 3, pleasant - Respiratory Respiratory exam: Present: CTAB - Cardiovascular Cardiovascular exam IM: Present: RRR, +S1, +S2 - GI/Abdominal GI/Abdominal exam IM: normal bowel sounds, soft Incision: normal, dry, intact - Rectal Rectal exam: deferred - Uterine Tone: Firm Uterus Position: 2 Fingers Below Umbilicus, Midline - Extremities Exam Extremities exam IM: Present: normal capillary refill, normal inspection, radial pulses palpable and symmetrical - Neurological Exam Neurological exam: alert, oriented X3
== END 2019-01-13 11:50 | disposition home or self-care (01) | DRG 540 ==
LOC: 1NENULAB → OBSVTOIN 19:44 → 1NENUOBS 01-11 17:37
PROVIDERS: ADMIT Advanced Practice Midwife; ATTEND Advanced Practice Midwife

== ENCOUNTER 2019-02-20 10:05 | Observation (INO) ==
[2019-02-20] MEDS ORDERED: Gadolinium Contrast Agent (WT Based) IV PRN (10:24)
[2019-02-20 10:37] LABS: Hematocrit 41.2 % (35.3-44.9); Hemoglobin 13.6 g/dL (11.5-15.4); Mean Corpuscular Hemoglobin 32.7 pg (28.0-33.3); Mean Platelet Volume 9.7 fL (9.4-12.4); Platelet Count 237 K/mcL (140-400); Red Blood Count 4.16 M/mcL (3.82-4.97); Red Cell Distribution Width 12.1 % (11.5-14.5); White Blood Count 8.1 K/mcL (4.3-11.1)
[2019-02-20 10:42] LABS: INR 1.1; Prothrombin Time 12.5 Seconds (9.4-12.1)
[2019-02-20 10:44] LABS: Activated Partial Thrombo Time 31.3 Seconds (26.0-36.0)
[2019-02-20 10:47] LABS: BUN/Creatinine Ratio 9 (6-26); Blood Urea Nitrogen 9 mg/dL (6-20); Calcium 8.7 mg/dL (8.6-10.3); Carbon Dioxide 23 mEq/L (23-29); Chloride 109 mEq/L (98-107); Glucose 91 mg/dL (70-105); Osmolality,Calculated 282 (280-300); Potassium 3.6 mEq/L (3.5-5.1); Sodium 137 mEq/L (136-145); eGFR For African Americans > 60 (> 60); eGFR For Non-African Americans > 60 (> 60)
[2019-02-20 10:48] LABS: Troponin I < 0.03 ng/mL (< 0.04)
[2019-02-20] MEDS ORDERED: Isovue-370 500 ML BOTTLE IVP ONE (11:04)
[2019-02-20] MEDS ORDERED: Acetaminophen/Butalbital/CaffeineTABLET PO STA (12:59)
[2019-02-20] MEDS ORDERED: Ondansetron 4 MG/2 ML VIAL IVP PRN (13:42)
[2019-02-20] MEDS ORDERED: Naloxone 0.4 MG/ML INJ IVP PRN (13:42)
[2019-02-20] MEDS ORDERED: Nicotine 14 MG PATCH.TD24 TD PRN (13:57)
[2019-02-20] MEDS ORDERED: Ipratropium/Albuterol Neb 3 ML IH PRN (13:57)
[2019-02-20] MEDS: *HR* Heparin 5,000 UNIT/ML VIAL SQ SCH ×2 (16:40→22:01)
[2019-02-20] MEDS: 0.9 % Sodium Chloride 1,000 ML IVC SCH (17:29)
[2019-02-21] MEDS: 0.9 % Sodium Chloride 1,000 ML IVC SCH (04:49)
[2019-02-21] MEDS: *HR* Heparin 5,000 UNIT/ML VIAL SQ SCH ×2 (05:53→12:50)
[2019-02-21 06:22] LABS: Alanine Aminotransferase 24 Units/L (7-52); Albumin 3.4 g/dL (3.5-5.7); Albumin/Globulin Ratio 1.6 (1.1-2.2); Alkaline Phosphatase 63 Units/L (34-104); Aspartate Amino Transferase 16 Units/L (13-39); BUN/Creatinine Ratio 15 (6-26); Bilirubin,Total 0.3 mg/dL (0.3-1.0); Blood Urea Nitrogen 13 mg/dL (6-20); Calcium 8.1 mg/dL (8.6-10.3); Carbon Dioxide 20 mEq/L (23-29); Chloride 113 mEq/L (98-107); Chol/HDL Ratio 5.3 (0-4.9); Cholesterol 164 mg/dL (< 200); Globulin 2.1 g/dL (2.4-3.5); Glucose 88 mg/dL (70-105); HDL Cholesterol 31 mg/dL (40-59); LDL Cholesterol,Calculated 110 mg/dL (0-99); Osmolality,Calculated 288 (280-300); Potassium 3.9 mEq/L (3.5-5.1); Sodium 139 mEq/L (136-145); Total Protein 5.5 g/dL (6.4-8.9); Triglycerides 116 mg/dL (< 150); eGFR For African Americans > 60 (> 60); eGFR For Non-African Americans > 60 (> 60)
[2019-02-21] MEDS ORDERED: Aspirin 81 MG TAB.CHEW PO SCH (09:00)
[2019-02-21] MEDS ORDERED: ARIPiprazole 10 MG TABLET PO SCH (09:00)
[2019-02-21] MEDS ORDERED: Vortioxetine Hydrobromide [Trintellix] 10 MG PO SCH (09:00)
[2019-02-21 15:33] VITALS: BP 100/64
== END 2019-02-21 17:31 | disposition home or self-care (01) ==
LOC: 3BNU 10:05 → EMEROOARM 10:05 → 3BNU 14:35
PROVIDERS: ADMIT Student in an Organized Health Care Education/Training Program; ATTEND Student in an Organized Health Care Education/Training Program

== ENCOUNTER 2019-04-21 09:16 | Observation (INO) ==
[2019-04-21] MEDS ORDERED: Isovue-370 500 ML BOTTLE IVP ONE (09:26)
[2019-04-21 09:43] LABS: Hematocrit 43.7 % (35.3-44.9); Hemoglobin 14.8 g/dL (11.5-15.4); Mean Corpuscular HGB Conc 33.9 g/dL (31.6-35.5); Mean Corpuscular Hemoglobin 30.8 pg (28.0-33.3); Mean Corpuscular Volume 90.9 fL (83.0-100.0); Mean Platelet Volume 9.9 fL (9.4-12.4); Platelet Count 254 K/mcL (140-400); Red Blood Count 4.81 M/mcL (3.82-4.97); White Blood Count 7.7 K/mcL (4.3-11.1)
[2019-04-21 10:00] LABS: BUN/Creatinine Ratio 9 (6-26); Blood Urea Nitrogen 9 mg/dL (6-20); Calcium 9.3 mg/dL (8.6-10.3); Carbon Dioxide 22 mEq/L (23-29); Chloride 109 mEq/L (98-107); Glucose 95 mg/dL (70-105); Osmolality,Calculated 284 (280-300); Potassium 3.6 mEq/L (3.5-5.1); Sodium 138 mEq/L (136-145); eGFR For African Americans > 60 (> 60); eGFR For Non-African Americans > 60 (> 60)
[2019-04-21 10:29] LABS: Troponin I < 0.03 ng/mL (< 0.04)
[2019-04-21] MEDS ORDERED: Acetaminophen 325 MG TABLET PO PRN (12:24)
[2019-04-21] MEDS ORDERED: Ondansetron 4 MG/2 ML VIAL IVP PRN (12:24)
[2019-04-21] MEDS ORDERED: *HR* HYDROcodone/Acet 5/325 mg TABLET PO PRN (12:24)
[2019-04-21] MEDS ORDERED: Naloxone 0.4 MG/ML INJ IVP PRN (12:24)
[2019-04-21] MEDS ORDERED: Nitroglycerin 0.4 MG TAB.SUBL SL PRN (12:27)
[2019-04-21] MEDS ORDERED: *HR* LORazepam 0.5 MG TABLET PO PRN (12:27)
[2019-04-21] MEDS: 0.9 % Sodium Chloride 1,000 ML IVC SCH ×2 (13:33→23:58)
[2019-04-21] MEDS ORDERED: 0.9 % Sodium Chloride 500 ML IVC ONE (23:18)
[2019-04-22 05:52] LABS: Chol/HDL Ratio 4.9 (0-4.9)
[2019-04-22] MEDS ORDERED: SUMAtriptan succinate 50 MG TABLET PO PRN (08:16)
[2019-04-22] MEDS ORDERED: Nicotine 14 MG PATCH.TD24 TD PRN (08:16)
[2019-04-22] MEDS ORDERED: Albuterol Neb 1.25 MG/3 ML VIAL IH PRN (08:16)
[2019-04-22] MEDS ORDERED: Aspirin Enteric Coated 81 MG Tablet PO SCH (09:00)
[2019-04-22] MEDS ORDERED: NON-FORMULARY MEDICATION 1 EACH EACH (Fluticasone/Vilanterol [Breo Ellipta 200-25 Mcg Inh] AER SCH (09:00)
[2019-04-22] MEDS ORDERED: ARIPiprazole 10 MG TABLET PO SCH (09:00)
[2019-04-22] MEDS ORDERED: Tiotropium 18 MCG inhalation IH SCH (10:00)
[2019-04-22 10:57] VITALS: BP 94/60
== END 2019-04-22 11:37 | disposition home or self-care (01) ==
LOC: CDU 09:16 → EMEROOARM 09:16 → SUATTDRO 13:37 → CDU 13:44 → 3BNU 19:06
PROVIDERS: ADMIT Internal Medicine; ATTEND Internal Medicine

== ENCOUNTER 2021-07-22 13:08 | Observation (INO) ==
[2021-07-22] MEDS ORDERED: Isovue-370 500 ML BOTTLE IVP ONE (13:20)
[2021-07-22 13:37] LABS: Hematocrit 45.6 % (35.3-44.9); Hemoglobin 15.3 g/dL (11.5-15.4); Mean Corpuscular HGB Conc 33.6 g/dL (31.6-35.5); Mean Corpuscular Hemoglobin 32.7 pg (28.0-33.3); Mean Corpuscular Volume 97.4 fL (83.0-100.0); Mean Platelet Volume 10.2 fL (9.4-12.4); Platelet Count 223 K/mcL (140-400); Red Blood Count 4.68 M/mcL (3.82-4.97); Red Cell Distribution Width 13.1 % (11.5-14.5); White Blood Count 9.1 K/mcL (4.3-11.1)
[2021-07-22 14:00] LABS: BUN/Creatinine Ratio 10 (6-26); Blood Urea Nitrogen 9 mg/dL (6-20); Calcium 9.2 mg/dL (8.6-10.3); Carbon Dioxide 26 mEq/L (23-29); Chloride 106 mEq/L (98-107); Glucose 99 mg/dL (70-105); Osmolality,Calculated 289 (280-300); Potassium 3.8 mEq/L (3.5-5.1); Sodium 140 mEq/L (136-145); Troponin I < 0.03 ng/mL (< 0.04); eGFR For African Americans > 60 (> 60); eGFR For Non-African Americans > 60 (> 60)
[2021-07-22] MEDS ORDERED: Naloxone 0.4 MG/ML INJ IVP PRN (16:19)
[2021-07-22] MEDS: Nicotine 21 MG PATCH.TD24 TD SCH (19:22)
[2021-07-23 04:34] LABS: Basophils % 0.4 %; Eosinophils # 0.3 K/mcL (0.0-0.6); Eosinophils % 3.2 %; Hematocrit 40.9 % (35.3-44.9); Immature Granulocytes % 0.2 % (0-4); Lymphocytes # 3.1 K/mcL (0.6-4.6); Lymphocytes % 37.7 %; Mean Corpuscular HGB Conc 33.3 g/dL (31.6-35.5); Mean Corpuscular Hemoglobin 32.6 pg (28.0-33.3); Mean Corpuscular Volume 98.1 fL (83.0-100.0); Mean Platelet Volume 10.3 fL (9.4-12.4); Monocytes # 0.5 K/mcL (0.0-1.3); Monocytes % 5.5 %; Neutrophils # 4.4 K/mcL (1.6-8.9); Platelet Count 191 K/mcL (140-400); Red Blood Count 4.17 M/mcL (3.82-4.97); White Blood Count 8.2 K/mcL (4.3-11.1)
[2021-07-23 04:36] LABS: Hemoglobin 13.6 g/dL (11.5-15.4)
[2021-07-23 04:53] LABS: BUN/Creatinine Ratio 11 (6-26); Blood Urea Nitrogen 10 mg/dL (6-20); Calcium 8.6 mg/dL (8.6-10.3); Carbon Dioxide 23 mEq/L (23-29); Chloride 107 mEq/L (98-107); Glucose 90 mg/dL (70-105); Osmolality,Calculated 285 (280-300); Potassium 3.4 mEq/L (3.5-5.1); Sodium 138 mEq/L (136-145); eGFR For African Americans > 60 (> 60); eGFR For Non-African Americans > 60 (> 60)
[2021-07-23] MEDS: Nicotine 21 MG PATCH.TD24 TD SCH (08:43)
[2021-07-23 15:36] VITALS: BP 105/65; PULSE 56; TEMP 98.3; O2SAT 99
== END 2021-07-23 17:19 | disposition home or self-care (01) ==
LOC: 3BNU 13:08 → EMEROOARM 13:08 → 3BNU 15:19
PROVIDERS: ADMIT Student in an Organized Health Care Education/Training Program; ATTEND Student in an Organized Health Care Education/Training Program

== ENCOUNTER 2021-10-24 14:46 | Observation (INO) ==
[2021-10-24] MEDS ORDERED: 0.9 % Sodium Chloride 1,000 ML IVC ONE (14:58)
[2021-10-24] MEDS ORDERED: Iopamidol - 370 500 ML MLS IVP ONE (14:58)
[2021-10-24 15:11] LABS: Hematocrit 42.1 % (35.3-44.9); Hemoglobin 14.5 g/dL (11.5-15.4); Mean Corpuscular HGB Conc 34.4 g/dL (31.6-35.5); Mean Corpuscular Hemoglobin 33.5 pg (28.0-33.3); Mean Corpuscular Volume 97.2 fL (83.0-100.0); Mean Platelet Volume 9.9 fL (9.4-12.4); Platelet Count 213 K/mcL (140-400); Red Blood Count 4.33 M/mcL (3.82-4.97); Red Cell Distribution Width 11.9 % (11.5-14.5); White Blood Count 8.9 K/mcL (4.3-11.1)
[2021-10-24 15:19] LABS: INR 1.2; Prothrombin Time 12.9 Seconds (9.4-12.1)
[2021-10-24 15:21] LABS: Activated Partial Thrombo Time 31.8 Seconds (26.0-36.0)
[2021-10-24] MEDS ORDERED: *HR* LORazepam 2 MG/ML VIAL IVP ONE (15:24)
[2021-10-24 15:32] LABS: BUN/Creatinine Ratio 10 (6-26); Blood Urea Nitrogen 10 mg/dL (6-20); Calcium 8.6 mg/dL (8.6-10.3); Carbon Dioxide 24 mEq/L (23-29); Chloride 103 mEq/L (98-107); Creatine Kinase 67 Units/L (30-223); Ethanol < 10 mg/dL (Less than 10); Glucose 102 mg/dL (70-105); Osmolality,Calculated 281 (280-300); Sodium 136 mEq/L (136-145); Troponin I < 0.03 ng/mL (< 0.04); eGFR For African Americans > 60 (> 60); eGFR For Non-African Americans > 60 (> 60)
[2021-10-24 15:57] LABS: Bilirubin,Urine Negative (Negative); Blood,Urine Negative (Negative); Clarity,Urine Clear (Clear); Color,Urine Colorless (Yellow); Glucose,Urine (UA) Normal (Normal); Ketones,Urine Negative (Negative); Leukocyte Esterase,Urine Negative (Negative); Nitrite,Urine Negative (Negative); PH,Urine 7.5 pH Units (5.0-8.0); Protein,Urine Negative (Neg-Trace); Specific Gravity,Urine > 1.030 (1.010-1.025); Urobilinogen,Urine Normal (Normal)
[2021-10-24] MEDS ORDERED: Naloxone 0.4 MG/ML INJ IVP PRN (17:01)
[2021-10-24] MEDS ORDERED: Acetaminophen 325 MG TABLET PO PRN (17:18)
[2021-10-24] MEDS ORDERED: Perflutren Lipid Microsphere 1.3 ML in 0.9 % Sodium Chloride 8.7 ML IVP PRN (17:18)
[2021-10-24] MEDS: Aspirin Enteric Coated 81 MG Tablet PO SCH (18:57)
[2021-10-24] MEDS: *HR* Heparin 5,000 UNIT/ML VIAL SQ SCH (18:58)
[2021-10-24] MEDS: clonazePAM 0.5 MG TABLET PO SCH (22:30)
[2021-10-24] MEDS: Nicotine 14 MG PATCH.TD24 TD SCH (22:30)
[2021-10-25 02:49] LABS: Alanine Aminotransferase 14 Units/L (7-52); Albumin 3.6 g/dL (3.5-5.7); Albumin/Globulin Ratio 1.4 (1.1-2.2); Alkaline Phosphatase 54 Units/L (34-104); Aspartate Amino Transferase 13 Units/L (13-39); BUN/Creatinine Ratio 9 (6-26); Bilirubin,Total 0.4 mg/dL (0.3-1.0); Blood Urea Nitrogen 8 mg/dL (6-20); Calcium 8.6 mg/dL (8.6-10.3); Carbon Dioxide 27 mEq/L (23-29); Chloride 109 mEq/L (98-107); Chol/HDL Ratio 2.8 (0-4.9); Cholesterol 111 mg/dL (< 200); Globulin 2.5 g/dL (2.4-3.5); Glucose 77 mg/dL (70-105); HDL Cholesterol 39 mg/dL (40-59); LDL Cholesterol,Calculated 61 mg/dL (< 100); Osmolality,Calculated 285 (280-300); Potassium 3.9 mEq/L (3.5-5.1); Sodium 139 mEq/L (136-145); Total Protein 6.1 g/dL (6.4-8.9); Triglycerides 55 mg/dL (< 150); eGFR For African Americans > 60 (> 60); eGFR For Non-African Americans > 60 (> 60)
[2021-10-25 03:11] LABS: Estimated Average Glucose 100 mg/dl; Hemoglobin A1C 5.1 %
[2021-10-25] MEDS ORDERED: SUMAtriptan succinate 25 MG TABLET PO ONE (04:13)
[2021-10-25] MEDS: *HR* Heparin 5,000 UNIT/ML VIAL SQ SCH (06:04)
[2021-10-25] MEDS: Aspirin Enteric Coated 81 MG Tablet PO SCH (08:31)
[2021-10-25] MEDS: Nicotine 14 MG PATCH.TD24 TD SCH (08:32)
[2021-10-25] MEDS: clonazePAM 0.5 MG TABLET PO SCH (08:32)
[2021-10-25] MEDS ORDERED: ARIPiprazole 10 MG TABLET PO SCH (09:00)
[2021-10-25 12:57] VITALS: BP 86/50; PULSE 45; TEMP 97.9; O2SAT 98
[2021-10-25 15:47] LABS: Rheumatoid Factor < 10 IU/mL (Less than 14)
[2021-10-25 16:11] LABS: Folate 6.2 ng/mL (3.0-16.0)
[2021-10-25 16:12] LABS: Vitamin B12 598 pg/mL (250-1100)
== END 2021-10-25 15:17 | disposition home or self-care (01) ==
LOC: EMEROOARM 14:46 → 3ANU 14:46
PROVIDERS: ADMIT General Practice; ATTEND General Practice

== ENCOUNTER 2022-01-10 19:24 | Inpatient (IN) ==
[2022-01-10 21:22] LABS: Basophils # 0.1 K/mcL (0.0-0.2); Basophils % 0.7 %; Eosinophils # 0.3 K/mcL (0.0-0.6); Eosinophils % 3.7 %; Hematocrit 40.3 % (35.3-44.9); Hemoglobin 13.3 g/dL (11.5-15.4); Immature Granulocytes % 0.1 % (0-4); Lymphocytes # 2.7 K/mcL (0.6-4.6); Lymphocytes % 37.6 %; Mean Corpuscular Hemoglobin 32.4 pg (28.0-33.3); Mean Corpuscular Volume 98.3 fL (83.0-100.0); Mean Platelet Volume 10.2 fL (9.4-12.4); Monocytes # 0.5 K/mcL (0.0-1.3); Monocytes % 6.5 %; Neutrophils # 3.6 K/mcL (1.6-8.9); Platelet Count 197 K/mcL (140-400); Red Cell Distribution Width 12.2 % (11.5-14.5); Segmented Neutrophils % 51.4 %; White Blood Count 7.1 K/mcL (4.3-11.1)
[2022-01-10 21:40] LABS: BUN/Creatinine Ratio 10 (6-26); Blood Urea Nitrogen 10 mg/dL (6-20); Calcium 9.4 mg/dL (8.6-10.3); Carbon Dioxide 29 mEq/L (23-29); Chloride 105 mEq/L (98-107); Glucose 88 mg/dL (70-105); Magnesium 2.2 mg/dL (1.6-2.6); Osmolality,Calculated 284 (280-300); Potassium 3.9 mEq/L (3.5-5.1); Sodium 138 mEq/L (136-145); Troponin I < 0.03 ng/mL (< 0.04)
[2022-01-10] MEDS ORDERED: Ondansetron 4 MG/2 ML VIAL IVP PRN (23:53)
[2022-01-10] MEDS ORDERED: Naloxone 0.4 MG/ML INJ IVP PRN (23:53)
[2022-01-11] MEDS ORDERED: 0.9 % Sodium Chloride 1,000 ML IV ONE (01:11)
[2022-01-11] MEDS: Nicotine 14 MG PATCH.TD24 TD SCH (08:13)
[2022-01-11] MEDS: *HR* Enoxaparin 40 MG/0.4 ML SYRINGE SQ SCH (08:14)
[2022-01-11 08:55] LABS: Basophils % 0.5 %; Eosinophils # 0.3 K/mcL (0.0-0.6); Eosinophils % 5.2 %; Hematocrit 40.7 % (35.3-44.9); Hemoglobin 13.6 g/dL (11.5-15.4); Immature Granulocytes % 0.2 % (0-4); Lymphocytes # 2.1 K/mcL (0.6-4.6); Lymphocytes % 35.4 %; Mean Corpuscular HGB Conc 33.4 g/dL (31.6-35.5); Mean Corpuscular Hemoglobin 32.6 pg (28.0-33.3); Mean Corpuscular Volume 97.6 fL (83.0-100.0); Monocytes # 0.4 K/mcL (0.0-1.3); Monocytes % 6.6 %; Neutrophils # 3.1 K/mcL (1.6-8.9); Platelet Count 191 K/mcL (140-400); Red Blood Count 4.17 M/mcL (3.82-4.97); Red Cell Distribution Width 12.4 % (11.5-14.5); Segmented Neutrophils % 52.1 %; White Blood Count 5.9 K/mcL (4.3-11.1)
[2022-01-11 09:14] LABS: Calcium 8.9 mg/dL (8.6-10.3); Magnesium 2.2 mg/dL (1.6-2.6); Potassium 3.5 mEq/L (3.5-5.1)
[2022-01-11 09:27] LABS: Thyroid Stimulating Hormone 2.121 mcIU/mL (0.340-5.600)
[2022-01-11] MEDS: Aspirin Enteric Coated 81 MG Tablet PO SCH (10:38)
[2022-01-11] MEDS: ARIPiprazole 10 MG TABLET PO SCH (10:38)
[2022-01-11] MEDS ORDERED: clonazePAM 0.5 MG TABLET PO SCH (10:45)
[2022-01-11] MEDS ORDERED: 0.9 % Sodium Chloride 500 ML IVC ONE (13:00)
[2022-01-11] MEDS ORDERED: 0.9 % Sodium Chloride 500 ML ONE ×2 (13:06→18:58)
[2022-01-11] MEDS ORDERED: *HR* LORazepam 2 MG/ML VIAL IVP ONE (13:42)
[2022-01-11] MEDS ORDERED: 0.9 % Sodium Chloride 1,000 ML ONE (18:35)
[2022-01-11] MEDS ORDERED: *HR* Heparin 10,000 UNIT/10 ML VIAL ONE (18:36)
[2022-01-11] MEDS ORDERED: *HR* FentaNYL (PF) 100 MCG/2 ML VIAL ONE (18:56)
[2022-01-11] MEDS ORDERED: *HR* Midazolam HCl 2 MG/2 ML VIAL ONE (18:56)
[2022-01-11] MEDS: clonazePAM 0.5 MG TABLET PO PRN (21:51)
[2022-01-11] MEDS: Acetaminophen 325 MG TABLET PO PRN (22:24)
[2022-01-12 07:17] LABS: Hematocrit 41.3 % (35.3-44.9); Hemoglobin 13.5 g/dL (11.5-15.4); Mean Corpuscular HGB Conc 32.7 g/dL (31.6-35.5); Mean Corpuscular Hemoglobin 32.1 pg (28.0-33.3); Mean Corpuscular Volume 98.3 fL (83.0-100.0); Mean Platelet Volume 10.4 fL (9.4-12.4); Platelet Count 179 K/mcL (140-400); Red Cell Distribution Width 12.3 % (11.5-14.5); White Blood Count 6.7 K/mcL (4.3-11.1)
[2022-01-12 07:24] LABS: INR 1.3; Prothrombin Time 14.7 Seconds (9.4-12.1)
[2022-01-12 07:37] LABS: BUN/Creatinine Ratio 10 (6-26); Blood Urea Nitrogen 9 mg/dL (6-20); Calcium 8.6 mg/dL (8.6-10.3); Carbon Dioxide 22 mEq/L (23-29); Chloride 109 mEq/L (98-107); Glucose 84 mg/dL (70-105); Osmolality,Calculated 282 (280-300); Potassium 3.4 mEq/L (3.5-5.1); Sodium 137 mEq/L (136-145)
[2022-01-12] MEDS: Nicotine 14 MG PATCH.TD24 TD SCH (09:38)
[2022-01-12] MEDS: ARIPiprazole 10 MG TABLET PO SCH (10:24)
[2022-01-12] MEDS: Aspirin Enteric Coated 81 MG Tablet PO SCH (10:24)
[2022-01-12] MEDS: Acetaminophen 325 MG TABLET PO PRN ×2 (10:27→17:22)
[2022-01-12] MEDS: *HR* Enoxaparin 40 MG/0.4 ML SYRINGE SQ SCH (10:44)
[2022-01-12] MEDS: Gabapentin 300 MG CAPSULE PO SCH ×2 (17:17→20:50)
[2022-01-12] MEDS: clonazePAM 0.5 MG TABLET PO PRN (20:50)
[2022-01-13 04:14] VITALS: TEMP 97.5
[2022-01-13] MEDS: Acetaminophen 325 MG TABLET PO PRN ×2 (04:17→14:25)
[2022-01-13] MEDS ORDERED: Ketorolac 30 MG/ML VIAL IVP ONE (05:05)
[2022-01-13] MEDS: *HR* Enoxaparin 40 MG/0.4 ML SYRINGE SQ SCH (05:51)
[2022-01-13] MEDS: Gabapentin 300 MG CAPSULE PO SCH (08:35)
[2022-01-13] MEDS: Aspirin Enteric Coated 81 MG Tablet PO SCH (08:35)
[2022-01-13] MEDS: ARIPiprazole 10 MG TABLET PO SCH (08:35)
[2022-01-13] MEDS: Nicotine 14 MG PATCH.TD24 TD SCH (08:35)
[2022-01-13] MEDS: clonazePAM 0.5 MG TABLET PO PRN (10:36)
[2022-01-13 16:08] VITALS: BP 118/64; PULSE 40; O2SAT 98
== END 2022-01-13 18:07 | disposition home or self-care (01) | DRG 177 ==
LOC: EMEROOARM 19:24 → 3BNU 19:24 → SUATTDRO 23:12 → 3BNU 01-11 00:17 → 2NNU 01-11 14:13
PROVIDERS: ADMIT Internal Medicine; ATTEND Internal Medicine

== ENCOUNTER 2022-02-20 14:39 | Inpatient (IN) ==
[2022-02-20] MEDS ORDERED: 0.9 % Sodium Chloride 1,000 ML IV ONE (15:17)
[2022-02-20 15:23] LABS: Basophils % 0.3 %; Eosinophils # 0.1 K/mcL (0.0-0.6); Eosinophils % 1.8 %; Hematocrit 41.4 % (35.3-44.9); Hemoglobin 13.3 g/dL (11.5-15.4); Immature Granulocytes % 0.3 % (0-4); Lymphocytes # 2.3 K/mcL (0.6-4.6); Lymphocytes % 37.5 %; Mean Corpuscular HGB Conc 32.1 g/dL (31.6-35.5); Mean Corpuscular Hemoglobin 31.7 pg (28.0-33.3); Mean Corpuscular Volume 98.8 fL (83.0-100.0); Mean Platelet Volume 10.2 fL (9.4-12.4); Monocytes # 0.3 K/mcL (0.0-1.3); Monocytes % 4.7 %; Neutrophils # 3.4 K/mcL (1.6-8.9); Platelet Count 171 K/mcL (140-400); Red Blood Count 4.19 M/mcL (3.82-4.97); Segmented Neutrophils % 55.4 %; White Blood Count 6.1 K/mcL (4.3-11.1)
[2022-02-20 15:34] LABS: BUN/Creatinine Ratio 8 (6-26); Blood Urea Nitrogen 7 mg/dL (6-20); Calcium 8.9 mg/dL (8.6-10.3); Carbon Dioxide 25 mEq/L (23-29); Chloride 107 mEq/L (98-107); Glucose 107 mg/dL (70-105); Osmolality,Calculated 280 (280-300); Potassium 3.4 mEq/L (3.5-5.1); Sodium 136 mEq/L (136-145)
[2022-02-20 15:35] LABS: Troponin I < 0.03 ng/mL (< 0.04)
[2022-02-20 17:39] LABS: Thyroid Stimulating Hormone 2.333 mcIU/mL (0.340-5.600)
[2022-02-20] MEDS ORDERED: Melatonin 3 MG TABLET PO PRN (19:37)
[2022-02-20] MEDS ORDERED: Ondansetron ODT 4 MG TAB.RAPDIS SL PRN (19:37)
[2022-02-20] MEDS ORDERED: Naloxone 0.4 MG/ML INJ IVP PRN (19:37)
[2022-02-20] MEDS ORDERED: D5% in Water 1,000 ML IVC PRN (19:41)
[2022-02-20] MEDS ORDERED: *HR* Dextrose 50 % in Water (Syg) 50 ML SYRINGE IVP PRN (19:41)
[2022-02-20] MEDS ORDERED: Dextrose Gel 15 GM/37.5 ML TUBE PO PRN ×2 (19:41)
[2022-02-20] MEDS: Acetaminophen 325 MG TABLET PO PRN (22:54)
[2022-02-21 05:00] LABS: Basophils % 0.5 %; Eosinophils # 0.2 K/mcL (0.0-0.6); Eosinophils % 2.8 %; Hematocrit 35.5 % (35.3-44.9); Lymphocytes # 2.6 K/mcL (0.6-4.6); Lymphocytes % 43.2 %; Mean Corpuscular Hemoglobin 31.8 pg (28.0-33.3); Mean Corpuscular Volume 96.5 fL (83.0-100.0); Mean Platelet Volume 10.3 fL (9.4-12.4); Monocytes # 0.3 K/mcL (0.0-1.3); Monocytes % 5.1 %; Neutrophils # 2.9 K/mcL (1.6-8.9); Platelet Count 151 K/mcL (140-400); Red Blood Count 3.68 M/mcL (3.82-4.97); Red Cell Distribution Width 12.1 % (11.5-14.5); Segmented Neutrophils % 48.4 %; White Blood Count 6.1 K/mcL (4.3-11.1)
[2022-02-21] MEDS: Acetaminophen 325 MG TABLET PO PRN ×2 (05:01→20:39)
[2022-02-21 05:02] LABS: Hemoglobin 11.7 g/dL (11.5-15.4)
[2022-02-21 05:06] LABS: INR 1.2; Prothrombin Time 13.7 Seconds (9.4-12.1)
[2022-02-21 05:09] LABS: Activated Partial Thrombo Time 30.4 Seconds (26.0-36.0)
[2022-02-21 05:21] LABS: Alanine Aminotransferase 26 Units/L (7-52); Albumin 3.5 g/dL (3.5-5.7); Albumin/Globulin Ratio 1.6 (1.1-2.2); Alkaline Phosphatase 49 Units/L (34-104); Aspartate Amino Transferase 21 Units/L (13-39); BUN/Creatinine Ratio 9 (6-26); Bilirubin,Total 0.6 mg/dL (0.3-1.0); Blood Urea Nitrogen 8 mg/dL (6-20); Calcium 8.2 mg/dL (8.6-10.3); Carbon Dioxide 22 mEq/L (23-29); Chloride 111 mEq/L (98-107); Globulin 2.2 g/dL (2.4-3.5); Glucose 84 mg/dL (70-105); Magnesium 1.9 mg/dL (1.6-2.6); Osmolality,Calculated 280 (280-300); Phosphorous 3.4 mg/dL (2.7-4.5); Sodium 136 mEq/L (136-145); Total Protein 5.7 g/dL (6.4-8.9); Troponin I < 0.03 ng/mL (< 0.04)
[2022-02-21] MEDS: *HR* Heparin 5,000 UNIT/ML VIAL SQ SCH ×3 (08:31→20:41)
[2022-02-21] MEDS: ARIPiprazole 10 MG TABLET PO SCH (08:37)
[2022-02-21] MEDS: clonazePAM 0.5 MG TABLET PO SCH ×2 (08:37→20:38)
[2022-02-21] MEDS: Gabapentin 100 MG CAPSULE PO SCH ×3 (08:37→20:38)
[2022-02-21] MEDS: Nicotine 14 MG PATCH.TD24 TD SCH (08:37)
[2022-02-21] MEDS ORDERED: 0.9 % Sodium Chloride 500 ML ONE (23:54)
[2022-02-22] MEDS ORDERED: 0.9 % Sodium Chloride 500 ML IVC ONE ×3 (00:15→03:09)
[2022-02-22 01:56] LABS: Amphetamine Screen,Urine Negative ng/mL (Cutoff=1000); Barbiturate Screen,Urine Negative ng/mL (Cutoff=200); Benzodiazepines Screen,Urine Negative ng/mL (Cutoff=200); Cannabinoid Screen,Urine Positive ng/mL (Cutoff = 50); Cocaine Screen,Urine Negative ng/mL (Cutoff= 300); Opiate Screen,Urine Negative ng/mL (Cutoff=300); Phencyclidine Screen,Urine Negative ng/mL (Cutoff=25)
[2022-02-22] MEDS ORDERED: 0.9 % Sodium Chloride 1,000 ML IVC SCH (05:00)
[2022-02-22] MEDS: *HR* Heparin 5,000 UNIT/ML VIAL SQ SCH ×3 (05:23→20:05)
[2022-02-22] MEDS: Acetaminophen 325 MG TABLET PO PRN (08:17)
[2022-02-22] MEDS: clonazePAM 0.5 MG TABLET PO SCH ×2 (08:17→20:05)
[2022-02-22] MEDS: Gabapentin 100 MG CAPSULE PO SCH ×2 (08:17→20:05)
[2022-02-22] MEDS: ARIPiprazole 10 MG TABLET PO SCH (08:17)
[2022-02-22] MEDS: Nicotine 14 MG PATCH.TD24 TD SCH (08:17)
[2022-02-22] MEDS ORDERED: Ketorolac 30 MG/ML VIAL IVP ONE (08:35)
[2022-02-22 09:13] LABS: Hematocrit 36.1 % (35.3-44.9); Mean Corpuscular HGB Conc 33.2 g/dL (31.6-35.5); Mean Corpuscular Hemoglobin 32.1 pg (28.0-33.3); Mean Corpuscular Volume 96.5 fL (83.0-100.0); Mean Platelet Volume 10.2 fL (9.4-12.4); Platelet Count 153 K/mcL (140-400); Red Blood Count 3.74 M/mcL (3.82-4.97); White Blood Count 5.9 K/mcL (4.3-11.1)
[2022-02-22 09:34] LABS: Calcium 7.7 mg/dL (8.6-10.3); Potassium 3.7 mEq/L (3.5-5.1)
[2022-02-22] MEDS: Sucralfate 1 GM TABLET PO SCH ×2 (10:01→16:46)
[2022-02-22] MEDS ORDERED: Sucralfate 1 GM TABLET PO SCH (16:30)
[2022-02-23 01:07] LABS: Hematocrit 39.1 % (35.3-44.9); Hemoglobin 13.4 g/dL (11.5-15.4); Mean Corpuscular HGB Conc 34.3 g/dL (31.6-35.5); Mean Corpuscular Hemoglobin 32.5 pg (28.0-33.3); Mean Corpuscular Volume 94.9 fL (83.0-100.0); Mean Platelet Volume 10.2 fL (9.4-12.4); Platelet Count 189 K/mcL (140-400); Red Blood Count 4.12 M/mcL (3.82-4.97); Red Cell Distribution Width 11.9 % (11.5-14.5); White Blood Count 8.8 K/mcL (4.3-11.1)
[2022-02-23 01:28] LABS: BUN/Creatinine Ratio 10 (6-26); Blood Urea Nitrogen 8 mg/dL (6-20); Calcium 8.5 mg/dL (8.6-10.3); Carbon Dioxide 23 mEq/L (23-29); Chloride 108 mEq/L (98-107); Glucose 91 mg/dL (70-105); Magnesium 1.8 mg/dL (1.6-2.6); Osmolality,Calculated 282 (280-300); Potassium 3.5 mEq/L (3.5-5.1); Sodium 137 mEq/L (136-145)
[2022-02-23] MEDS: *HR* Heparin 5,000 UNIT/ML VIAL SQ SCH ×3 (05:43→20:33)
[2022-02-23] MEDS: Acetaminophen 325 MG TABLET PO PRN (07:27)
[2022-02-23] MEDS: ARIPiprazole 10 MG TABLET PO SCH (08:15)
[2022-02-23] MEDS: Sucralfate 1 GM TABLET PO SCH ×2 (08:15→17:49)
[2022-02-23] MEDS: Gabapentin 100 MG CAPSULE PO SCH ×2 (08:15→20:32)
[2022-02-23] MEDS: Nicotine 14 MG PATCH.TD24 TD SCH (08:15)
[2022-02-23] MEDS: clonazePAM 0.5 MG TABLET PO SCH ×2 (08:15→20:32)
[2022-02-23] MEDS ORDERED: Iopamidol - 370 500 ML MLS IVP ONE (08:37)
[2022-02-23] MEDS ORDERED: Nitroglycerin 0.4 MG TAB.SUBL SL PRN (08:37)
[2022-02-23] MEDS ORDERED: 0.9 % Sodium Chloride 1,000 ML IVC SCH (09:45)
[2022-02-23] MEDS ORDERED: Lidocaine -MPF 1% 5 ML AMPUL INFILT ONE (10:03)
[2022-02-23 13:22] LABS: Amphetamine Screen,Urine Negative ng/mL (Cutoff=1000); Barbiturate Screen,Urine Negative ng/mL (Cutoff=200); Benzodiazepines Screen,Urine Negative ng/mL (Cutoff=200); Cannabinoid Screen,Urine Positive ng/mL (Cutoff = 50); Cocaine Screen,Urine Negative ng/mL (Cutoff= 300); Opiate Screen,Urine Negative ng/mL (Cutoff=300); Phencyclidine Screen,Urine Negative ng/mL (Cutoff=25)
[2022-02-23 16:23] VITALS: TEMP 98.1
[2022-02-23 20:01] VITALS: O2SAT 99
[2022-02-23 21:50] VITALS: BP 102/59; PULSE 68
== END 2022-02-23 23:59 | disposition other institution (70) | DRG 201 ==
LOC: SUATTDRO → 2NENU 14:39 → EMEROOARM 14:39 → SUATTDRO 20:35 → 2NENU 21:40 → 2NNU 02-22 21:48
PROVIDERS: ADMIT Internal Medicine; ATTEND Internal Medicine